=== PATIENT | female | born 1990 | race American Indian/Alaskan Native ===

== ENCOUNTER 2017-12-31 20:05 | Emergency (ER) | payer MEDICAID ==
[2018-01-01 01:50] VITALS: BP 127/71; PULSE 74; RESP 16; TEMP 98.2; O2SAT 100
--- NOTE | 2018-01-01 08:37 | OBHP ---
Datetime: 12/31/2017 21:18 IP Adm Impression: Term, intrauterine ; Intact Membranes IP Chief Complaint Other: dizziness IP Admit Plan: Observation/Evaluation; Discharge home Admit Comment, IP Provider: 27 yo at 40.6 weeks GA based on LMP 03/20/17, EDC 12/25/17 presen ts to [facility] with c/o feeling lightheadedness when getting up from sitting position this evening. Pt re ports she was visiting her family near this area and wanted to make sure nothing was serious. Denies LOC, head injury, blurry vision, nausea, vomiting, chest pain, dyspnea, headache or focal weakness. p t is unsure how long the dizziness lasted. Reports +FM. Denies LOF, CTX, abominal pain or VB. Pt is G BS+. Pt has scheduled for IOL at [facility] tomorrow. PNC: [facility], [place], last visit was today. PNL: gbs+, hiv neg, rpr neg, hepsag neg, US on 10/11/17 shows cephalic presentation. pastobhx: x1, induced x 2 Past gynhx: denies hx sti or abnormal pap pmhx: denies pshx: denies socialhx: +marijuana during this , denies any other drugs uses. family hx: denies hx CAD or stroke in family meds: PNV allergies: NKDA Assessment: 27 yo IUP@ 40.6 weeks GA, not in labor Dizziness (resolved) Plan: Reactive heart tracing dizziness resolved Pt is scheduled for IOL tomorrow at [facility], advised to f/u as scheduled. [facility] precaution given. Case d/w on-call OB hospitalist Dr. Tl Romo, pgy-1 OB Hosptialist on-call. With PGY1, I saw and examined this patinet. Agree with note. MAHNDO Extremities - PN: Normal Abdomen - PN: Normal Back - PN: Normal Lungs - PN: Normal Heart - PN: Normal Neurologic - PN: Normal HEENT - PN: Normal General - PN: Normal FHR - Baseline A Provider: 140s Pool Provider: Negative IP Hx Assessment: The History has been Reviewed and is Current EGA AdmitDate IP: 40.6 Vital Signs Provider: Reviewed IP Chief Complaint: Other NICHD Variability Prov Fetus A: Moderate 6-25bpm NICHD Accel Fetus A IP Provider: [id number] FHR Category Provider Fetus A: Category I NICHD Decel Fetus A IP Provider: None
--- NOTE | 2018-01-01 08:40 | OBDCSUM ---
Datetime: 12/31/2017 21:35 Discharged to, Provider: Home Follow up at, Provider: [facility] Disch Instr Activity: Normal activity Disch Instr Diet: Regular Discharge Time: 12/25/2017 21:36 Follow up in weeks, Provider: 01/01/18 @ 6:30pm to [facility] Disch Referrals: None Discharge Diagnosis Prov Other: Dizziness
== END 2017-12-31 21:30 | disposition home or self-care (01) ==
LOC: H.EROB2 20:05
DX: O47.1 False labor at or after 37 completed weeks of gestation (principal); Z3A.40 40 weeks gestation of pregnancy; O48.0 Post-term pregnancy; O26.93 Pregnancy related conditions, unspecified, third trimester; R42 Dizziness and giddiness